=== PATIENT | female | born 1940 | race Caucasian/White ===

== ENCOUNTER 2016-09-18 05:32 | Day surgery (SDC) | payer BC ==
[2016-09-17 10:42] VITALS: BMI 30.7
--- NOTE | 2016-09-17 13:51 | PREOPHP ---
DATE OF ADMISSION: 09/18/2016 HISTORY OF PRESENT ILLNESS: This 76-year-old patient is admitted for elective cataract surgery of t he right eye. The patient has had progressive deterioration of vision for approximately 9 months an d 4 months ago underwent cataract surgery of the left eye with good visual result. The patient's [facility] history is positive for hypercholesterolemia, hypertension and hypothyroidism. CURRENT MEDICATIONS INCLUDE: 1. Pravastatin. 2. Levothyroxine. 3. Hydrochlorothiazide. 4. Aspirin (discontinued 1 week prior to surgery). ALLERGIES: THERE ARE NO KNOWN ALLERGIES. PHYSICAL EXAMINATION: The visual acuity with best correction is 20/80 in the right eye and 20/30 in the left eye. Slit lamp examination reveals anterior cortical and nuclear sclerotic cataract in th e right eye and a posterior chamber intraocular lens in the left eye. Applanation tonometry is 13 m mHg in both eyes. Examination of the retina is within normal limits. DIAGNOSIS: Cataract, right eye. PLAN: Cataract extraction with lens implant, right eye. The risks and alternatives to the surgery have been discussed with the patient and the patient has opted to proceed with surgery in hopes of o btaining better visual acuity leading to a greater ability to perform activities of daily living. Dictated By: TERESA SCHMID/CARLOS Conf#: [id number] DID#: [id number]
[~2016-09-18] VITALS: Ht 152.4 cm; Wt 66.2 kg
[2016-09-18] VITALS (8 sets, daily range): BP systolic 110–140; BP diastolic 63–76; PULSE 67–90; RESP 13–20; Ht 152.4 cm; Wt 66.2 kg
[~2016-09-18 05:32] MED LIST: AMLO2.5T78 PO; CEFAZOLIN 1 GM INJ INJ ONE; CIPROFLOXACIN 0.3% 2.5 ML OPH OPER SCH; CYCLOPENTOLATE/PHENYLEPH 2 ML OPH OPER SCH; DICLOFENAC 0.1% 2.5 ML OPH OPER SCH; HYD25 PO; LEVO50TA74 PO; PRAV10TA43 PO; TROPICAMIDE 1% 2 ML OPH OPER SCH
[2016-09-18] MEDS ORDERED: LIDOCAINE 4% (MPF) 5 ML INJ ONE (06:26)
[2016-09-18] MEDS ORDERED: CEFAZOLIN 1 GM INJ ONE (06:27)
[2016-09-18] MEDS ORDERED: CARBACHOL 0.01% 1.5 ML OPH INJ ONE (06:27)
[2016-09-18] MEDS ORDERED: DEXAMETHASONE 4 MG/ML 1 ML INJ ONE (06:27)
[2016-09-18] MEDS ORDERED: EPINEPHrine 1 MG INJ ONE (06:27)
[2016-09-18] MEDS ORDERED: GENTAMICIN 80 MG INJ ONE (06:27)
[2016-09-18] MEDS ORDERED: HYALURONATE/CHONDROITIN 1ML OPH INJ ONE (06:28)
[2016-09-18 06:32] LABS: ADD SCAN DIFF NO
[2016-09-18 06:55] LABS: BASOPHILS % 0.5 % (0.0-2.0); EOSINOPHILS # 0.1 10^3/ul (0.0-0.5); EOSINOPHILS % 2.1 % (0.0-7.0); HEMATOCRIT 36.1 % (37.0-47.0); HEMOGLOBIN 12.2 g/dl (12.0-16.0); LYMPHOCYTES % 46.4 % (15.0-51.0); MEAN CORPUSCULAR HEMOGLOBIN 31.3 pg (29.0-33.0); MEAN CORPUSCULAR HGB CONC 33.8 g/dl (32.0-37.0); MEAN CORPUSCULAR VOLUME 92.6 fl (82.0-101.0); MEAN PLATELET VOLUME 11.2 fl (7.4-10.4); MONOCYTE # 0.4 10^3/ul (0.3-0.9); MONOCYTES % 9.4 % (0.0-11.0); NEUTROPHIL # 1.8 10^3/ul (1.6-7.5); NEUTROPHILS % 41.4 % (39.0-77.0); PLATELET COUNT 258 10^3/UL (140-415); RED CELL DISTRIBUTION WIDTH 13.7 % (11.5-14.5); WHITE BLOOD COUNT 4.4 10^3/ul (4.8-10.8)
[2016-09-18] MEDS ORDERED: MEPERIDINE 25 MG INJ IV PRN (07:00)
[2016-09-18] MEDS ORDERED: morphine (1 MG/ML) 10ML SYRINGE IV PRN ×3 (07:00)
[2016-09-18] MEDS ORDERED: ONDANSETRON 4 MG INJ IV PRN (07:00)
[2016-09-18] MEDS ORDERED: ATROPINE 1 MG/10 ML SYRINGE IV PRN (07:00)
[2016-09-18] MEDS ORDERED: hydrALAzine 20 MG INJ IV PRN (07:00)
[2016-09-18] MEDS ORDERED: DEXAMETHASONE 4 MG/ML 1 ML INJ INJ ONE (07:00)
[2016-09-18] MEDS ORDERED: MIDAZOLAM 1 MG/ML 2 ML INJ IV PRN (07:00)
[2016-09-18] MEDS ORDERED: HYALURONATE/CHONDROITIN 1ML OPH INJ IO ONE (07:00)
[2016-09-18] MEDS ORDERED: OXYCODONE/ACETAMINOPHEN (5/325) TAB PO PRN ×2 (07:00)
[2016-09-18] MEDS ORDERED: CARBACHOL 0.01% 1.5 ML OPH INJ IO ONE (07:00)
[2016-09-18] MEDS ORDERED: DIPHENHYDRAMINE 50 MG INJ IV PRN (07:00)
[2016-09-18] MEDS ORDERED: HYDROmorphONE (0.2 MG/ML) 10ML SYG IV PRN ×3 (07:00)
[2016-09-18] MEDS ORDERED: FENTAnyl 50 MCG/ML VIAL IV PRN ×2 (07:00)
[2016-09-18] MEDS ORDERED: LABETALOL HCL 20MG INJ IV PRN (07:00)
[2016-09-18] MEDS ORDERED: EPHEDrine SULFATE 50 MG/5 ML SYG IV PRN (07:00)
[2016-09-18] MEDS ORDERED: GENTAMICIN 80 MG INJ INJ ONE (07:34)
[2016-09-18] MEDS ORDERED: PROPOFOL 20 ML ONE (07:53)
[2016-09-18] MEDS ORDERED: LIDOCAINE 100 MG SYRINGE ONE (07:53)
--- NOTE | 2016-09-18 12:18 | OPR ---
DATE OF OPERATION: 09/18/2016 PREOPERATIVE DIAGNOSIS: Cataract, right eye. POSTOPERATIVE DIAGNOSIS: Cataract, right eye. SURGEON: Teresa Blood MD ANESTHESIA: Local standby. ANESTHESIOLOGIST: Jewel Moses MD OPERATION: Phacoemulsification with posterior chamber intraocular lens implant, right eye. PROCEDURE: The patient was brought to the operating room and placed on the table with an IV in plac e and the patient attached to an monitoring manager. Oxygen was given via face mask. After some intravenous sedation was administered, local anesthesia was given using Xylocaine 2% with epinephrine, mixed with Marcaine 0.5%. This was given in a lid block and retrobulbar injection. The patient was then prepped and draped in the usual sterile manner. A wire lid speculum was inserted between the lids of the right eye. A Superblade was used to enter t he anterior chamber at the corneoscleral limbus at the 10:30 o'clock position. A separate incision w as made using a 3.0-mm keratome which entered the corneoscleral junction at the 12 o'clock position. Through this 3-mm opening, an irrigating cystitome was introduced into the anterior chamber. The ch trevor was filled with Viscoat and an anterior capsulotomy was performed. Balanced salt solution was then used for hydrodissection of the lens. A phacoemulsification handpiece was then brought into th e field and introduced into the anterior chamber. The lens nucleus was emulsified using a deep groov e and cracking the nucleus into quadrants. Following this, each quadrant was aspirated and emulsifie d at the pupillary margin. After this was completed, the irrigation/aspiration handpiece was brought to the field, introduced i nto the posterior chamber, and the lens cortical material was removed. When this was completed, dante tional Viscoat was injected into the anterior and posterior chambers. The 3-mm opening had its internal lips enlarged, and then the posterior chamber intraocular lens jake suring 22.5 diopters ([employer], model LI61AO) was then injected into the posterio r chamber using the lens injector system. After the leading haptic was introduced into the capsular bag and the lens optic was present in the center of the eye, the injector was removed and the traili ng haptic was grasped with non-toothed forceps and introduced into the capsular fold superiorly. A S inskey hook was then used to rotate the intraocular lens so that the lips were oriented in the horiz ontal meridian. One 10-0 nylon suture was placed across the wound. Prior to tying, the irrigation/aspiration handpiece was reintroduced into the anterior chamber to re move the Viscoat. Miochol was instilled to constrict the pupil, and then the 10-0 nylon suture was t ied. The ends were cut short and then the knot was buried. Then, 0.5 mL of dexamethasone and 0.5 mL of gentamicin were injected into the sub-Tenon space in the inferior fornix. Ciloxan drops were then placed on the surface of the eye. The speculum was remove d and a patch was applied. The patient then left the operating room in satisfactory condition. Dictated By: TERESA SCHMID/CARLOS Conf#: [id number] DID#: [id number]
== END 2016-09-18 09:20 | disposition home or self-care (01) ==
LOC: SDS 05:32
PROVIDERS: ATTEND Ophthalmology
DX: H25.11 Age-related nuclear cataract, right eye (principal); I10 Essential (primary) hypertension; E78.5 Hyperlipidemia, unspecified; E03.9 Hypothyroidism, unspecified
CPT/HCPCS: 66984; 85025; J0171; J0690; J1100; J1580; J2001; V2632; Z7512; Z7610